=== PATIENT | female | born 1995 | race Caucasian/White ===

== ENCOUNTER 2017-01-18 00:46 | Emergency (ER) | payer OTHER ==
[~2017-01-18] VITALS: Ht 154.9 cm; Wt 73.0 kg
[2017-01-18] MEDS ORDERED: ONDANSETRON 4MG ODT PO STA (02:22)
[2017-01-18] MEDS ORDERED: ACETAMINOPHEN WITH CODEINE 300/30MG TABLET PO STA (02:22)
[2017-01-18 02:39] LABS: BASOPHILS % 0.5 % (0.0-2.0); EOSINOPHILS % 0.8 % (0.0-5.0); HEMATOCRIT. 39.1 % (36.0-48.0); HEMOGLOBIN. 13.5 g/dL (12.0-16.0); LYMPHOCYTES % 9.8 % (20.0-50.0); MEAN CORPUSCULAR HEMOGLOBIN 30.1 pg (28.0-32.0); MEAN CORPUSCULAR HGB CONC 34.4 g/dL (31.0-37.0); MEAN CORPUSCULAR VOLUME 87.3 fL (81.0-99.0); MEAN PLATELET VOLUME 8.5 fl (7.4-10.4); MONOCYTES % 6.6 % (2.0-8.0); NEUTROPHILS % 82.3 % (40.0-76.0); PLATELET 317 x1000/uL (130-400); RED BLOOD CELL COUNT 4.48 mill/uL (4.2-5.4); WHITE BLOOD COUNT 11.2 x1000/uL (4.5-11.0)
[2017-01-18 02:55] LABS: CALCIUM 8.6 mg/dL (8.5-10.1)
[2017-01-18 03:06] VITALS: BP 135/83
[2017-01-18 03:10] LABS: CLARITY URINE CLEAR (CLEAR); COLOR URINE YELLOW (YELLOW); GLUCOSE URINE NEGATIVE (NEGATIVE); KETONES URINE 1+ (NEGATIVE); LEUKOCYTE ESTERASE URINE NEGATIVE (NEGATIVE); NITRITE URINE NEGATIVE (NEGATIVE); OCCULT BLOOD URINE 1+ (NEGATIVE); PH URINE 5.5 (4.5-8.0); PROTEIN URINE 1+ (NEGATIVE); SPECIFIC GRAVITY URINE 1.006 (1.005-1.030); UROBILINOGEN URINE 0.2 E.U./dL (0.2-1.0)
[2017-01-18 03:23] LABS: BACTERIA URINE TRACE; RBC URINE 0-2 /hpf (0-2); SQUAMOUS EPITHELIAL CELL URINE FEW /lpf (RARE/1+); WBC URINE 0-2 /hpf (0-2)
== END 2017-01-18 03:52 | disposition home or self-care (01) ==
LOC: ER 02:00
DX: R10.30 Lower abdominal pain, unspecified (principal); F12.10 Cannabis abuse, uncomplicated; R19.7 Diarrhea, unspecified
CPT/HCPCS: 36415; 80048; 81001; 81025; 85025; 99284; Q0162